=== PATIENT | male | born 1955 | race Caucasian/White ===

== ENCOUNTER 2017-06-21 07:13 | Day surgery (SDC) | payer OTHER ==
[~2017-06-21] VITALS: Ht 175.3 cm; Wt 67.9 kg
[2017-06-21 08:15] VITALS: Ht 175.3 cm; Wt 67.9 kg
[2017-06-21 08:37] VITALS: BP 116/64; PULSE 78; RESP 21
[2017-06-21] MEDS ORDERED: BP MED (08:38)
--- NOTE | 2017-06-21 09:29 | OPPN ---
Date/Time of Note Date/Time of Note DATE: 06/21/17 TIME: 09:28 Operative Report Preoperative Diagnosis Abdominal pain Screening Postoperative Diagnosis Gastritis with erosions Hiatal hernia and gastroesophageal reflux disease Internal and external hemorrhoids No colon neoplasm is identified Operation/Procedure Performed Esophagogastroduodenoscopy and biopsy Colonoscopy Surgeon see signature line learning and development assistant None Anesthesia: moderate sedation Estimated blood loss: none Transfusion Required none Specimen Gastric mucosal biopsy Grafts/Implants none Complications none HAROLDO HYMAN MD Jun 21, 2017 09:29
[2017-06-21] MEDS ORDERED: FENTAnyl 50 MCG/ML VIAL ONE (09:39)
[2017-06-21] MEDS ORDERED: MIDAZOLAM 1 MG/ML 2 ML INJ ONE ×2 (09:39→09:40)
--- NOTE | 2017-06-21 12:32 | GILP ---
DATE OF PROCEDURE: NAME OF PROCEDURES: 1. Esophagogastroduodenoscopy and biopsy. 2. Colonoscopy. SURGEON: Haroldo Ramsey MD PREOPERATIVE DIAGNOSES: 1. Abdominal pain. 2. Screening colonoscopy. POSTOPERATIVE DIAGNOSES 1. Gastritis with erosions. 2. Gastric mucosal biopsies were taken for Helicobacter pylori test. 3. Hiatal hernia and gastroesophageal reflux disease. 4. Colonoscopy all the way to the cecum. 5. Internal and external hemorrhoids. 6. No colon neoplasm was identified. INDICATION FOR THE PROCEDURE: Mr. Kaitlyn Chairez is a 62-year-old male patient who had upper abdomi nal pain, not responding to therapy. The patient also needed screening colonoscopy. The procedures and possible complications were well explained to the patient. The patient understoo d and consented to the procedure. DESCRIPTION OF PROCEDURE: Under the influence of fentanyl and Versed, the gastroscope was carefully introduced into the esophagus and under direct vision it was advanced to the stomach and through th e pylorus into the duodenal bulb and descending duodenum. FINDINGS: ESOPHAGUS: The patient had hiatal hernia and gastroesophageal reflux disease. STOMACH: He had gastritis with erosions. Gastric mucosal biopsies were taken for H. pylori test. DUODENUM: Normal. The colonoscope was carefully introduced in the rectum and under direct vision it was advanced all t he way to the cecum. FINDINGS: The patient had internal and external hemorrhoids. No colon neoplasm was identified. He tolerated the procedures very well and there were no complication from the procedures. At the en d of the procedures, he was awake with stable vital signs and he was discharged home to the care of his family. IMPRESSION: Please see postoperative diagnoses. PLAN: 1. Pantoprazole 40 mg p.o. q.a.m. 2. Await Helicobacter pylori test report. 3. Next screening colonoscopy in 10 years. Dictated By: HAROLDO ROJAS/ED Conf#: [id number] DID#: [id number]
== END 2017-06-21 17:20 | disposition home or self-care (01) ==
LOC: GIL 07:13
PROVIDERS: ATTEND Internal Medicine Gastroenterology
DX: Z12.11 Encounter for screening for malignant neoplasm of colon (principal); K29.60 Other gastritis without bleeding; K44.9 Diaphragmatic hernia without obstruction or gangrene; K64.8 Other hemorrhoids; K64.4 Residual hemorrhoidal skin tags; I25.10 Atherosclerotic heart disease of native coronary artery without angina pectoris; I10 Essential (primary) hypertension
CPT/HCPCS: 43239; 45378; 87081; J2250; J3010; Z7610